=== PATIENT | female | born 1975 | race Caucasian/White ===

== ENCOUNTER 2023-01-04 21:52 | Emergency (ER) | payer OTHER ==
[~2023-01-04] VITALS: Ht 152.4 cm; Wt 102.1 kg
[2023-01-04 21:55] VITALS: BP 132/78
--- NOTE | 2023-01-04 21:58 | NUR ---
TO LOBBY A/W BED AMBULATORY
--- NOTE | 2023-01-04 23:34 | NUR ---
TO BED 5 FROM LOBBY
[2023-01-05] MEDS ORDERED: CEPH-588 PO (00:44)
[2023-01-05 01:20] VITALS: BP 132/78
== END 2023-01-05 01:20 | disposition home or self-care (01) ==
LOC: MED 21:52
DX: S61.211A Laceration without foreign body of left index finger without damage to nail, initial encounter (principal); W26.8XXA Contact with other sharp object(s), not elsewhere classified, initial encounter; Y93.89 Activity, other specified; Y92.89 Other specified places as the place of occurrence of the external cause; Y99.8 Other external cause status
CPT/HCPCS: 12001; 99283